=== PATIENT | male | born 1995 | race Caucasian/White ===

== ENCOUNTER 2018-04-25 16:30 | Emergency (ER) | payer BC ==
--- NOTE | 2018-04-25 19:35 | RAD ---
THREE VIEWS RIGHT SHOULDER: 04/25/18 INDICATION: Right shoulder injury while playing rugby. FINDINGS: No definite acute fracture or subluxation is evident. The visualized right lung is clear. IMPRESSION: No acute osseous abnormality. POS: DETSINI
== END 2018-04-25 19:53 | disposition home or self-care (01) ==
LOC: ERS 16:30
DX: M25.511 Pain in right shoulder (principal)